=== PATIENT | female | born 1990 | race Caucasian/White ===

== ENCOUNTER 2022-03-23 12:11 | Emergency (ER) | payer OTHER ==
[~2022-03-23] VITALS: Ht 165.1 cm; Wt 89.1 kg
[2022-03-23 12:21] VITALS: BP 133/85; TEMP 97.3
[2022-03-23] MEDS ORDERED: TIROSINT100 MC1 PO (13:43)
[2022-03-23 13:57] LABS: COLLECTION METHOD CLEAN CATCH
[2022-03-23 14:05] LABS: MUCOUS Present (NOT PRESENT); URINE APPEARANCE Hazy (CLEAR/HAZY); URINE BACTERIA Rare /hpf (NONE SEEN); URINE COLOR Amber (YELLOW); URINE RBC 0-2 /hpf (0-2)
[2022-03-23 14:06] LABS: PH 5.5 (5.0-8.5); URINE BLOOD TRACE-INTACT (NEGATIVE); URINE GLUCOSE Negative (NEGATIVE); URINE KETONE Negative (NEGATIVE); URINE NITRATE Negative (NEGATIVE); URINE PROTEIN(semi-quant) Negative (NEGATIVE); URINE UROBILINOGEN 0.2 E.U/dL (0.2-1.0)
[2022-03-23 14:24] LABS: BASO % 0.2 % (0.0-2.0); EOS % 0.6 % (0.0-4.0); GRAN # 4.3 K/mm3 (1.4-6.5); GRAN % 79.2 % (42.2-75.2); LYMPH # 0.8 K/mm3 (1.2-3.4); LYMPH % 14.5 % (20.0-51.0); MEAN CELL VOLUME 92 fl (80.0-100.0); MEAN CORPUSCULAR HGB CONC 32 g/dl (33.0-37.0); MEAN PLATELET VOLUME 10.6 fl (7.4-10.4); MONO # 0.3 K/mm3 (0.1-0.6); MONO % 5.3 % (1.7-9.3); PLATELET COUNT 117 K/mm3 (130-400); RED BLOOD COUNT 1.99 M/mm3 (4.10-5.30); REDCELL DISTRIBUTION WIDTH-CV 13.4 % (11.5-14.5)
[2022-03-23 14:26] LABS: HEMATOCRIT 18.2 % (37.0-47.0); HEMOGLOBIN 5.8 g/dl (12.5-16.0); MEAN CORPUSCULAR HEMOGLOBIN 29 pg (27-31)
[2022-03-23 14:56] LABS: BASO % 0.4 % (0.0-2.0); EOS # 0.1 K/mm3 (0.0-0.7); EOS % 0.7 % (0.0-4.0); GRAN # 7.8 K/mm3 (1.4-6.5); GRAN % 77.9 % (42.2-75.2); LYMPH # 1.5 K/mm3 (1.2-3.4); LYMPH % 15.4 % (20.0-51.0); MEAN CORPUSCULAR HGB CONC 33 g/dl (33.0-37.0); MEAN PLATELET VOLUME 10.3 fl (7.4-10.4); MONO # 0.5 K/mm3 (0.1-0.6); MONO % 5.2 % (1.7-9.3); RED BLOOD COUNT 4.24 M/mm3 (4.10-5.30); REDCELL DISTRIBUTION WIDTH-CV 13.4 % (11.5-14.5)
[2022-03-23 14:57] LABS: HEMATOCRIT 36.3 % (37.0-47.0); MEAN CELL VOLUME 86 fl (80.0-100.0); MEAN CORPUSCULAR HEMOGLOBIN 28 pg (27-31); PLATELET COUNT 247 K/mm3 (130-400)
[2022-03-23 15:15] LABS: ALBUMIN 3.7 gm/dL (3.5-5.0); BILIRUBIN,TOTAL 0.8 mg/dL (0.2-1.2); CALCIUM 8.8 mg/dL (8.4-10.2); CREATININE, serum 0.68 mg/dL (0.57-1.11); POTASSIUM 4.4 mmol/L (3.5-4.5); TOTAL PROTEIN 6.3 gm/dL (6.2-8.1)
[2022-03-23] MEDS ORDERED: CEPHALEXIN500 M1 PO (16:52)
[2022-03-23] MEDS ORDERED: ZOFRAN ODT4 MG PO (16:52)
[2022-03-23] MEDS ORDERED: PERCOCET 325 MG1 TA2 PO (16:52)
[2022-03-23 17:12] VITALS: PULSE 76
== END 2022-03-23 17:02 | disposition home or self-care (01) ==
LOC: COL.ER 12:11
PROVIDERS: Personal Emergency Response Attendant
DX: K82.8 Other specified diseases of gallbladder (principal); F17.200 Nicotine dependence, unspecified, uncomplicated; Z28.310 Unvaccinated for COVID-19
CPT/HCPCS: J2270; J2405; J7030; Q9967

== ENCOUNTER 2022-07-02 11:43 | Day surgery (SDC) | payer OTHER ==
[~2022-07-02] VITALS: Ht 165.1 cm; Wt 89.4 kg
[~2022-07-02 11:43] MED LIST: CEPHALEXIN500 M1 PO; PERCOCET 325 MG1 TA2 PO; TIROSINT100 MC1 PO; ZOFRAN ODT4 MG PO
[2022-07-02] MEDS ORDERED: TIROSINT125 MC1 PO (13:02)
[2022-07-02] MEDS ORDERED: VITAMIN C500 MG PO (13:03)
[2022-07-02] MEDS ORDERED: SELENIUM200 MC5 (13:03)
[2022-07-02] MEDS ORDERED: IRON PO (13:07)
[2022-07-02 13:08] LABS: BASO % 0.5 % (0.0-2.0); EOS # 0.1 K/mm3 (0.0-0.7); EOS % 1.5 % (0.0-4.0); GRAN # 3.4 K/mm3 (1.4-6.5); GRAN % 57.9 % (42.2-75.2); HEMOGLOBIN 12.5 g/dl (12.5-16.0); LYMPH % 33.1 % (20.0-51.0); MEAN CELL VOLUME 82 fl (80.0-100.0); MEAN CORPUSCULAR HEMOGLOBIN 28 pg (27-31); MEAN CORPUSCULAR HGB CONC 34 g/dl (33.0-37.0); MEAN PLATELET VOLUME 10.1 fl (7.4-10.4); MONO # 0.4 K/mm3 (0.1-0.6); MONO % 6.7 % (1.7-9.3); PLATELET COUNT 247 K/mm3 (130-400); RED BLOOD COUNT 4.49 M/mm3 (4.10-5.30); REDCELL DISTRIBUTION WIDTH-CV 13.2 % (11.5-14.5)
[2022-07-02] MEDS ORDERED: ADVIL200 MG PO (13:08)
[2022-07-02] MEDS ORDERED: EXCEDRIN1 TAB PO (13:08)
[2022-07-02] MEDS ORDERED: D3-5050000 IU PO (13:10)
[2022-07-02 13:25] LABS: BILIRUBIN,TOTAL 0.5 mg/dL (0.2-1.2); CALCIUM 8.7 mg/dL (8.4-10.2); CREATININE, serum 0.71 mg/dL (0.57-1.11); POTASSIUM 4.3 mmol/L (3.5-4.5); TOTAL PROTEIN 6.5 gm/dL (6.2-8.1)
[2022-07-02] MEDS ORDERED: MOTRIN 600600 MG/TAB PO (14:05)
[2022-07-02] MEDS ORDERED: PERCOCET 325 MG1 TA2 PO (14:05)
[2022-07-02 16:30] VITALS: BP 135/64; PULSE 56; TEMP 97.4
[2022-07-02 16:45] VITALS: BP 122/74; PULSE 61
[2022-07-02 17:00] VITALS: BP 125/73; PULSE 61
[2022-07-02 17:15] VITALS: BP 122/71; PULSE 61
--- NOTE | 2022-07-02 17:45 | NUR ---
1630 REPORT RECEIVED FROM HANG ZHAO. PT RETURNED FROM PACU, ALERT AND ORIENTED. OFFERRED APPLE JUICE WHICH PT ACCEPTED. 1645 PT C/O 6.5-7/10 PAIN. PRN DOSE OF PERCOCET GIVEN. MUFFIN PROVIDED TO PT. 1734 DISCHARGE INSTRUCTIONS AND PT EDUCATION REVIEWED W/ PT AND HER . 1740 PT TO LOBBY VIA WHEEL CHAIR FOR RIDE HOME WITH HER IN [facility].
[2022-07-02 17:49] VITALS: BP 109/64; PULSE 60; TEMP 98.9
== END 2022-07-02 17:45 | disposition home or self-care (01) ==
LOC: SDCO 11:43
PROVIDERS: Surgery
DX: K80.10 Calculus of gallbladder with chronic cholecystitis without obstruction (principal); F17.210 Nicotine dependence, cigarettes, uncomplicated
CPT/HCPCS: J1100; J1170; J1200; J1885; J2405; J2704; J3010; J7120